=== PATIENT | female | born 1990 | race Caucasian/White ===

== ENCOUNTER → 2016-04-01 | Outpatient (REF) | payer OTHER | LOC: M SFHCLERA 18:58 | PROVIDERS: ATTEND Nurse Practitioner Family | DX: R50.9 Fever, unspecified (principal) ==

== ENCOUNTER → 2016-05-30 | Outpatient (REF) | payer OTHER | LOC: M SFHCLERA 16:57 | PROVIDERS: ATTEND Family Medicine | DX: J02.9 Acute pharyngitis, unspecified (principal) ==